=== PATIENT | male | born 1980 | race Caucasian/White ===

== ENCOUNTER 2018-06-23 18:57 | Emergency (ER) | payer SELFPAY, OTHER ==
[2018-06-23] MEDS: HYDROCODONE/APAP (5/325) TAB PO (23:40)
[2018-06-23] MEDS: KETOROLAC 60 MG INJ IM (23:40)
[2018-06-23] MEDS: predniSONE 20 MG TAB PO (23:40)
== END 2018-06-24 01:53 | disposition home or self-care (01) ==
LOC: FTE 18:57
DX: M25.532 Pain in left wrist (principal)
CPT/HCPCS: 96372; 99284-25